=== PATIENT | male | born 1970 | race Caucasian/White ===

== ENCOUNTER 2024-02-12 02:17 | Emergency (ER) | payer BC ==
[2024-02-12 02:25] VITALS: BP 146/102; PULSE 78; RESP 18; TEMP 98.6; BMI 26.5
[2024-02-12] MEDS ORDERED: ERYTHROMYCIN 0.5% OPHTHALMIC OINTMENT 3.5 GM TUBE ONE (02:31)
[2024-02-12] MEDS: ERYTHROMYCIN 0.5% OPHTHALMIC OINTMENT 3.5 GM TUBE OD ONE (02:44)
== END 2024-02-12 02:46 | disposition home or self-care (01) ==
LOC: FER 02:17
DX: S05.11XA Contusion of eyeball and orbital tissues, right eye, initial encounter (principal); W22.8XXA Striking against or struck by other objects, initial encounter
CPT/HCPCS: 99283-25